=== PATIENT | female | born 1955 | race Caucasian/White ===

== ENCOUNTER 2022-05-26 16:57 | Observation (INO) ==
[2022-05-26] MEDS ORDERED: NovoLIN R (or HumuLIN R) SUBCUT PRN (22:21)
[2022-05-26] MEDS ORDERED: PEPCID TAB 20 MG PO PRN (22:43)
[2022-05-26] MEDS ORDERED: NITRO-BID OINT 2% Multi-Dose tube TD PRN (22:54)
[2022-05-26] MEDS ORDERED: LYRICA CAP 150 mg PO PRN (22:57)
[2022-05-26] MEDS ORDERED: REMDESIVIR 200 MG in NS 250 ML IV 250 ML IV ONE (23:00)
[2022-05-26] MEDS ORDERED: NS 250 ML IV 250 ML IV ONE (23:28)
[2022-05-26] MEDS: TRICOR TAB 145 MG PO SCH (23:42)
[2022-05-26] MEDS: PEPCID TAB 20 MG PO SCH (23:43)
[2022-05-26] MEDS: TAMIFLU PO SCH (23:43)
[2022-05-26] MEDS: CRESTOR TAB 10 MG PO SCH (23:43)
[2022-05-27 00:12] VITALS: BMI 37.5
[2022-05-27] MEDS ORDERED: NITRO-BID OINT 2% Multi-Dose tube TD SCH (03:00)
--- NOTE | 2022-05-27 05:31 | RAD ---
HISTORYCOVID PNEUMONIA Relevant Clinical InformationSTUDYCHEST, 1 VIEWCOMPARISONNoneFINDINGSThe trachea is midline. The cardiac silhouette is unremarkable. The lungs are clear without focal infiltrate or effusion. The bony thorax is unremarkable.IMPRESSIONNo acute cardiopulmonary findings .Electronically signed by: Kristian Campa (May 27, 2022 05:29:43)
[2022-05-27 06:05] LABS: BASOPHILS # (AUTO) 0.1 X10^3/uL (0.0-0.1); EOSINOPHILS # (AUTO) 0.4 x10^3/uL (0.0-0.2); EOSINOPHILS % (AUTO) 6.9 % (0.9-2.9); HEMATOCRIT 38.6 % (36.0-47.0); HEMOGLOBIN 13.6 g/dL (12.0-16.0); LYMPHOCYTES # (AUTO) 2.6 X10^3/uL (1.3-2.9); LYMPHOCYTES % (AUTO) 41.6 % (21.0-51.0); MEAN CORPUSCULAR HEMOGLOBIN 29.3 pg (27.0-34.0); MEAN CORPUSCULAR HGB CONC 35.1 g/dL (33.0-35.0); MEAN CORPUSCULAR VOLUME 83.6 fL (80.0-100.0); MEAN PLATELET VOLUME 8.8 fL (7.4-11.0); MONOCYTES # (AUTO) 0.6 x10^3/uL (0.3-0.8); MONOCYTES % (AUTO) 8.8 % (0.0-13.0); NEUTROPHILS # (AUTO) 2.6 x10^3/uL (2.2-4.8); NEUTROPHILS % (AUTO) 41.7 % (42.0-75.0); RED BLOOD COUNT 4.62 X10^6/uL (3.5-5.4); RED CELL DISTRIBUTION WIDTH 14.1 % (11.6-16.5); WHITE BLOOD COUNT 6.3 X10^3/uL (3.6-10.0)
[2022-05-27 07:07] LABS: ALANINE AMINOTRANSFERASE 25 Units/L (12-78); ALKALINE PHOSPHATASE 70 Units/L (46-116); ASPARTATE AMINO TRANSFERASE 26 Units/L (15-37); BLOOD UREA NITROGEN 15 mg/dL (7-18); CALCIUM 9.1 mg/dL (8.5-10.1); CARBON DIOXIDE 23.1 mmol/L (21-32); CHLORIDE 102 mmol/L (98-107); COR CA(FOR HYPOALB) 9.9 mg/dL (8.5-10.1); COR NA(FOR HYPERGLY) 138 mmol/L (136-145); CREATININE 0.84 mg/dL (0.55-1.02); SODIUM 137 mmol/L (136-145); eGFR NON BLACK RACES > 60 (>60)
[2022-05-27] MEDS ORDERED: TOPROL XL PO ONE (08:01)
--- NOTE | 2022-05-27 08:37 | DR.H&P ---
H&P History & Physical for Day of: H&P Date: 05/27/22 Chief Complaint Chief Complaint: Fever, chills, Generalized weakness, chest pain, shortness of breath Allergies Allergies Allergy/AdvReac Type Severity Reaction Status Date / Time IVP DYE Allergy Uncoded 07/01/21 10:32 History of Present Illness History of Present Illness: Pt is a 67 year old female past medical history of Hypertension, Diabetes mellitus, CAD, admitted as transfer from [facility]. In the ED, she presented with chest pain, shortness of breath, fever, chills, and generalized weakness. She was noted to be COVID-19 positive and was told she also has the flu. Labs/imaging: Wbc 6.3, Hgb 13.6, Plt 201, Na 137, K 3.6, Creatinine 0.84, Glucose 144, Troponin negative, D-dimer negative, CXR was obtained that revealed: no acute cardiopulmonary findings. COVID-19 positive. Pt is currently on room air. Will start on bronchodilators for shortness of breath. Order COVID-19 pneumonia protocol: IV Remdesivir, scheduled Bronchodilators, immune supporting supplements, supplemental O2, SSI, I/S, Lovenox 30mg BID. Restart home medications. Will consult cardiology due to chest pain. Order inf luenza test. Replete potassium per protocol. Continue to closely monitor and follow up labs. Past Surgical History Surgical History: Angioplasty/Stents and Hysterectomy Family History Family Medical History: Diabetes Mellitus, Cancer, [place], Coronary Artery Disease and Hypertension Social History Alcohol Use: None Drug Use: None Medications Home Medications: MS Levofloxacin [From Levaquin] Allergy (Mild, Verified 07/01/21 10:32) RASH IVP DYE Allergy (Uncoded 07/01/21 10:32) CONTINUE taking the following medications albuterol sulfate 90 mcg/actuation aerosol inhaler 2 puff inhalation QID PRN 05/26/22 [History] amlodipine 10 mg tablet 5 mg PO QDAY blood pressure 05/26/22 [History] aspirin 81 mg tablet,delayed release 81 mg PO QPM 05/26/22 [History] empagliflozin 25 mg tablet (Jardiance) 1 tab PO QDAY 05/26/22 [History] ergocalciferol (vitamin D2) 1,250 mcg (50,000 unit) capsule 1 cap PO QWEEK 05/26/22 [History] famotidine 20 mg tablet 1 tab PO BID 05/26/22 [History] fenofibrate nanocrystallized 145 mg tablet 1 tab PO QPM 05/26/22 [History] glipizide 5 mg tablet, extended release 24 hr 1 tab PO QDAY 05/26/22 [History] losartan 100 mg tablet 1 tab PO QDAY blood pressure 05/26/22 [History] metoprolol succinate 100 mg tablet,extended release 24 hr 1 tab PO DAILY 05/26/22 [History] pregabalin 150 mg capsule 1 cap PO PRN PRN Restless Leg(S) 05/26/22 [History] rosuvastatin 5 mg tablet 1 tab PO QPM cholesterol 05/26/22 [History] Labs Result Diagrams: 05/28/22 05:22 05/28/22 05:22 Labs: Laboratory WBC 6.3 X10^3/uL (3.6-10.0) 05/27/22 05:11 RBC 4.62 X10^6/uL (3.5-5.4) 05/27/22 05:11 Hgb 13.6 g/dL (12.0-16.0) 05/27/22 05:11 Hct 38.6 % (36.0-47.0) 05/27/22 05:11 MCV 83.6 fL (80.0-100.0) 05/27/22 05:11 MCH 29.3 pg (27.0-34.0) 05/27/22 05:11 MCHC 35.1 g/dL (33.0-35.0) H 05/27/22 05:11 RDW 14.1 % (11.6-16.5) 05/27/22 05:11 Plt Count 201 X10^3/uL (150.0-450.0) 05/27/22 05:11 MPV 8.8 fL (7.4-11.0) 05/27/22 05:11 Neut % (Auto) 41.7 % (42.0-75.0) L 05/27/22 05:11 Lymph % (Auto) 41.6 % (21.0-51.0) 05/27/22 05:11 [place] % (Auto) 8.8 % (0.0-13.0) 05/27/22 05:11 Eos % (Auto) 6.9 % (0.9-2.9) H 05/27/22 05:11 Baso % (Auto) 1.0 % (0.2-1.0) 05/27/22 05:11 Neut # (Auto) 2.6 x10^3/uL (2.2-4.8) 05/27/22 05:11 Lymph # (Auto) 2.6 X10^3/uL (1.3-2.9) 05/27/22 05:11 [place] # (Auto) 0.6 x10^3/uL (0.3-0.8) 05/27/22 05:11 Eos # (Auto) 0.4 x10^3/uL (0.0-0.2) H 05/27/22 05:11 Baso # (Auto) 0.1 X10^3/uL (0.0-0.1) 05/27/22 05:11 Absolute Nucleated RBC 0.1 /100WBC 05/27/22 05:11 Sodium 137 mmol/L (136-145) 05/27/22 05:11 Corrected Sodium 138 mmol/L (136-145) 05/27/22 05:11 Potassium 3.6 mmol/L (3.5-5.1) 05/27/22 05:11 Chloride 102 mmol/L (98-107) 05/27/22 05:11 Carbon Dioxide 23.1 mmol/L (21-32) 05/27/22 05:11 BUN 15 mg/dL (7-18) 05/27/22 05:11 Creatinine 0.84 mg/dL (0.55-1.02) 05/27/22 05:11 Est GFR (MDRD) Af Amer > 60 (>60) 05/27/22 05:11 Est GFR (MDRD) Non-Af > 60 (>60) 05/27/22 05:11 Glucose 144 mg/dL (65-99) H 05/27/22 05:11 POC Glucose (mg/dL) 151 mg/dL (65-99) H 05/27/22 05:50 Calcium 9.1 mg/dL (8.5-10.1) 05/27/22 05:11 Corrected Calcium 9.9 mg/dL (8.5-10.1) 05/27/22 05:11 Total Bilirubin 0.20 mg/dL (0.2-1.0) 05/27/22 05:11 AST 26 Units/L (15-37) 05/27/22 05:11 ALT 25 Units/L (12-78) 05/27/22 05:11 Alkaline Phosphatase 70 Units/L (46-116) 05/27/22 05:11 Total Protein 7.0 g/dL (6.4-8.2) 05/27/22 05:11 Albumin 3.0 g/dL (3.4-5.0) L 05/27/22 05:11 Globulin 4.0 g/dL (2.5-4.5) 05/27/22 05:11 Albumin/Globulin Ratio 0.8 Ratio (1.1-2.1) L 05/27/22 05:11 Review of Systems Constitutional: Weakness Eyes: No Symptoms Reported ENT: No Symptoms Reported Respiratory: Shortness of Breath Cardiovascular: Chest Pain Gastrointestinal: No Symptoms Reported Genitourinary: No Symptoms Reported Musculoskeletal: No Symptoms Reported Skin: No Symptoms Reported Neurological: No Symptoms Reported Physical Exam Vital Signs: Temperature 98.1 F Pulse Rate [Radial] 78 Respiratory Rate 18 Blood Pressure [Left Arm] 141/72 Blood Pressure [Right Arm] 136/65 O2 Sat by Pulse Oximetry 96 Oriented: Normal Eyes: Normal Ear: Normal Nose: Normal Throat: Normal Respiratory: Clear Throughout Cardiovascular: Normal : Normal Auscultation: Bowel Sounds: Normal Palpation: Normal Tenderness: Normal Skin: Normal Musculoskeletal: Normal Psychiatric: Normal Mood Description: Calm and Appropriate Affect: Normal Speech Pattern: Clear and Appropriate Assessment/Plan (1) COVID-19: Status: Acute Plan: pneumonia protocol (2) CAD (coronary artery disease): Status: Chronic (3) Hypokalemia: Status: Acute Review H&P Reviewed: Yes Patient was examined?: Yes
[2022-05-27] MEDS: TOPROL XL PO SCH (08:53)
[2022-05-27] MEDS: GLUCOTROL XL 24-HR PO SCH (08:53)
[2022-05-27] MEDS: TAMIFLU PO SCH ×2 (08:54→20:42)
[2022-05-27] MEDS: PEPCID TAB 20 MG PO SCH ×2 (08:54→20:43)
[2022-05-27] MEDS: LOVENOX INJ 40 MG SYR SC SCH (08:54)
[2022-05-27] MEDS: COZAAR PO SCH (08:54)
[2022-05-27] MEDS: NORVASC TAB 5 MG PO SCH (08:54)
[2022-05-27] MEDS ORDERED: ASPIRIN EC 81 MG PO ONE (19:47)
[2022-05-27] MEDS ORDERED: SNACK - Diabetic Appropriate PO SCH (20:00)
[2022-05-27] MEDS: CRESTOR TAB 10 MG PO SCH (20:42)
[2022-05-27] MEDS: TRICOR TAB 145 MG PO SCH (20:43)
[2022-05-27] MEDS ORDERED: ASPIRIN EC 81 MG PO SCH ×2 (21:00)
[2022-05-27] MEDS ORDERED: REMDESIVIR 100 MG in NS 250 ML IV 250 ML IV SCH (22:00)
[2022-05-28] MEDS: GLUCOTROL XL 24-HR PO SCH (06:01)
[2022-05-28 06:15] LABS: BASOPHILS # (AUTO) 0.1 X10^3/uL (0.0-0.1); EOSINOPHILS # (AUTO) 0.3 x10^3/uL (0.0-0.2); EOSINOPHILS % (AUTO) 5.6 % (0.9-2.9); HEMATOCRIT 37.7 % (36.0-47.0); LYMPHOCYTES # (AUTO) 2.9 X10^3/uL (1.3-2.9); LYMPHOCYTES % (AUTO) 48.9 % (21.0-51.0); MEAN CORPUSCULAR HEMOGLOBIN 28.6 pg (27.0-34.0); MEAN CORPUSCULAR HGB CONC 34.5 g/dL (33.0-35.0); MEAN PLATELET VOLUME 8.5 fL (7.4-11.0); MONOCYTES # (AUTO) 0.5 x10^3/uL (0.3-0.8); NEUTROPHILS # (AUTO) 2.1 x10^3/uL (2.2-4.8); NEUTROPHILS % (AUTO) 35.5 % (42.0-75.0); RED BLOOD COUNT 4.54 X10^6/uL (3.5-5.4); RED CELL DISTRIBUTION WIDTH 13.8 % (11.6-16.5); WHITE BLOOD COUNT 5.8 X10^3/uL (3.6-10.0)
[2022-05-28 06:23] LABS: ALANINE AMINOTRANSFERASE 20 Units/L (12-78); ALBUMIN 2.9 g/dL (3.4-5.0); ALKALINE PHOSPHATASE 74 Units/L (46-116); ASPARTATE AMINO TRANSFERASE 18 Units/L (15-37); BLOOD UREA NITROGEN 18 mg/dL (7-18); CALCIUM 8.8 mg/dL (8.5-10.1); CARBON DIOXIDE 24.1 mmol/L (21-32); CHLORIDE 103 mmol/L (98-107); COR CA(FOR HYPOALB) 9.7 mg/dL (8.5-10.1); COR NA(FOR HYPERGLY) 140 mmol/L (136-145); CREATININE 0.83 mg/dL (0.55-1.02); SODIUM 138 mmol/L (136-145); TOTAL PROTEIN 6.6 g/dL (6.4-8.2); eGFR NON BLACK RACES > 60 (>60)
[2022-05-28] MEDS ORDERED: POTASSIUM CHL 60 MEQ/NS 0.45% 500 ML IV PRN (07:03)
[2022-05-28] MEDS ORDERED: MICRO K EXTEN CAP 10 MEQ PO PRN (07:03)
[2022-05-28] MEDS ORDERED: POTASSIUM CHLORIDE LIQ 20 MEQ UDC PO PRN (07:03)
[2022-05-28] MEDS ORDERED: K-DUR TAB 20 MEQ PO PRN (07:03)
[2022-05-28] MEDS ORDERED: K-RIDER 10 MEQ/NS 100 ML 10 MEQ/100 ML BAG IV PRN (07:03)
[2022-05-28] MEDS ORDERED: POTASSIUM CHL 40 MEQ/NS 0.45% 500 ML IV PRN (07:03)
[2022-05-28] MEDS ORDERED: KLOR-CON PO PRN (07:03)
[2022-05-28] MEDS ORDERED: TOPROL XL PO ONE (07:51)
[2022-05-28] MEDS: COZAAR PO SCH (08:11)
[2022-05-28] MEDS: NORVASC TAB 5 MG PO SCH (08:11)
[2022-05-28] MEDS: TOPROL XL PO SCH (08:11)
[2022-05-28] MEDS: LOVENOX INJ 40 MG SYR SC SCH (08:11)
[2022-05-28] MEDS: TAMIFLU PO SCH (08:12)
[2022-05-28] MEDS: PEPCID TAB 20 MG PO SCH (08:12)
[2022-05-28 08:49] VITALS: BP 153/69
--- NOTE | 2022-05-28 16:27 | W.DIS.FURT ---
Summary of Discharge Discharge Summary of Date Date of Exam: 05/28/22 Admission Date Date of Admission: 05/26/22 Admission Diagnosis Hospital Course: Pt is a 67 year old female past medical history of Hypertension, Diabetes mellitus, CAD, admitted as transfer from [facility] for COVID-19 viremia, hypokalemia, and chest pain rule out. She was noted to be COVID-19 positive. She did not require supplemental oxygen. Her hospital/treatment course included: Will start on bronchodilators for shortness of breath. Order COVID-19 pneumonia protocol: IV Remdesivir, scheduled Bronchodilators, immune supporting supplements, supplemental O2, SSI, I/S, Lovenox 30mg BID. Restart home medications. Labs/imaging: Wbc 6.3, Hgb 13.6, Plt 201, Na 137, K 3.6, Creatinine 0.84, Glucose 144, Troponin negative, D-dimer negative, CXR was obtained that revealed: no acute cardiopulmonary findings. Will consult cardiology due to chest pain. Order influenza test. Replete potassium per protocol. Continue to closely monitor and follow up labs. Vital Signs: Vital Signs (72 hours) 05/26/22 20:30 05/27/22 00:00 05/27/22 04:00 Temperature 97.6 F 98.1 F Pulse Rate [Radial] 56 L 78 Respiratory Rate 18 18 Blood Pressure [Right Arm] 155/69 136/65 O2 Sat by Pulse Oximetry 96 96 Oxygen Delivery Method Room Air Room Air Room Air 05/27/22 07:00 05/27/22 08:00 05/27/22 12:00 Temperature 98.5 F 98.0 F Pulse Rate [Radial] 70 64 Respiratory Rate 18 20 Blood Pressure [Right Arm] 150/75 146/77 O2 Sat by Pulse Oximetry 94 L 96 Oxygen Delivery Method Room Air Room Air Room Air 05/27/22 16:00 05/27/22 19:00 05/27/22 20:00 Temperature 97.8 F 97.7 F Pulse Rate [Radial] 78 69 Respiratory Rate 20 18 Blood Pressure [Right Arm] 135/68 170/77 O2 Sat by Pulse Oximetry 97 96 Oxygen Delivery Method Room Air Room Air Room Air 05/28/22 00:00 05/28/22 03:50 05/28/22 07:00 Temperature 97.8 F 98.5 F Pulse Rate [Radial] 66 69 Respiratory Rate 20 18 Blood Pressure [Right Arm] 136/65 113/56 O2 Sat by Pulse Oximetry 97 97 Oxygen Delivery Method Room Air Room Air Room Air 05/28/22 08:00 Temperature 98.1 F Pulse Rate [Radial] 71 Respiratory Rate 20 Blood Pressure [Right Arm] 153/69 O2 Sat by Pulse Oximetry 96 Oxygen Delivery Method Room Air Labs: Laboratory Last Values WBC 5.8 X10^3/uL (3.6-10.0) 05/28/22 05:22 RBC 4.54 X10^6/uL (3.5-5.4) 05/28/22 05:22 Hgb 13.0 g/dL (12.0-16.0) 05/28/22 05:22 Hct 37.7 % (36.0-47.0) 05/28/22 05:22 MCV 83.0 fL (80.0-100.0) 05/28/22 05:22 MCH 28.6 pg (27.0-34.0) 05/28/22 05:22 MCHC 34.5 g/dL (33.0-35.0) 05/28/22 05:22 RDW 13.8 % (11.6-16.5) 05/28/22 05:22 Plt Count 205 X10^3/uL (150.0-450.0) 05/28/22 05:22 MPV 8.5 fL (7.4-11.0) 05/28/22 05:22 Neut % (Auto) 35.5 % (42.0-75.0) L 05/28/22 05:22 Lymph % (Auto) 48.9 % (21.0-51.0) 05/28/22 05:22 [place] % (Auto) 9.0 % (0.0-13.0) 05/28/22 05:22 Eos % (Auto) 5.6 % (0.9-2.9) H 05/28/22 05:22 Baso % (Auto) 1.0 % (0.2-1.0) 05/28/22 05:22 Neut # (Auto) 2.1 x10^3/uL (2.2-4.8) L 05/28/22 05:22 Lymph # (Auto) 2.9 X10^3/uL (1.3-2.9) 05/28/22 05:22 [place] # (Auto) 0.5 x10^3/uL (0.3-0.8) 05/28/22 05:22 Eos # (Auto) 0.3 x10^3/uL (0.0-0.2) H 05/28/22 05:22 Baso # (Auto) 0.1 X10^3/uL (0.0-0.1) 05/28/22 05:22 Absolute Nucleated RBC 0.0 /100WBC 05/28/22 05:22 Sodium 138 mmol/L (136-145) 05/28/22 05:22 Corrected Sodium 140 mmol/L (136-145) 05/28/22 05:22 Potassium 3.3 mmol/L (3.5-5.1) L 05/28/22 05:22 Chloride 103 mmol/L (98-107) 05/28/22 05:22 Carbon Dioxide 24.1 mmol/L (21-32) 05/28/22 05:22 BUN 18 mg/dL (7-18) 05/28/22 05:22 Creatinine 0.83 mg/dL (0.55-1.02) 05/28/22 05:22 Est GFR (MDRD) Af Amer > 60 (>60) 05/28/22 05:22 Est GFR (MDRD) Non-Af > 60 (>60) 05/28/22 05:22 Glucose 167 mg/dL (65-99) H 05/28/22 05:22 POC Glucose (mg/dL) 165 mg/dL (65-99) H 05/28/22 05:31 Calcium 8.8 mg/dL (8.5-10.1) 05/28/22 05:22 Corrected Calcium 9.7 mg/dL (8.5-10.1) 05/28/22 05:22 Total Bilirubin 0.30 mg/dL (0.2-1.0) 05/28/22 05:22 AST 18 Units/L (15-37) 05/28/22 05:22 ALT 20 Units/L (12-78) 05/28/22 05:22 Alkaline Phosphatase 74 Units/L (46-116) 05/28/22 05:22 Total Protein 6.6 g/dL (6.4-8.2) 05/28/22 05:22 Albumin 2.9 g/dL (3.4-5.0) L 05/28/22 05:22 Globulin 3.7 g/dL (2.5-4.5) 05/28/22 05:22 Albumin/Globulin Ratio 0.8 Ratio (1.1-2.1) L 05/28/22 05:22 Influenza Type A Ag Negative-presumptive (NEGATIVE) 05/27/22 13:45 Influenza Type B Ag Negative-presumptive (NEGATIVE) 05/27/22 13:45 Reason For Visit: CHEST PAIN, SHORTNESS OF BREATH Discharge Diagnosis All Active Problems (Updated 05/28/22 @ 09:19 by Umesh Layne) Hypokalemia (Acute) COVID-19 (Acute) RLS (restless legs syndrome) (Chronic) Community acquired pneumonia (Acute) GERD (gastroesophageal reflux disease) (Chronic) CAD (coronary artery disease) (Chronic) Hyperlipidemia (Chronic) Hypertension (Chronic) History of ND (myocardial infarction) (Chronic) History of diverticulosis (Chronic) Diabetes mellitus, type 2 (Chronic) Plan of Treatment: Continue with present treatment and follow up plan. Pt is to keep follow up appointment as instructed and take medications as ordered. Discharge Medications Discharge Medications: IVP DYE Allergy (Uncoded 07/01/21 10:32) CONTINUE taking the following medications albuterol sulfate 90 mcg/actuation aerosol inhaler 2 puff inhalation QID PRN 05/26/22 [History] amlodipine 10 mg tablet 5 mg PO QDAY blood pressure 05/26/22 [History] aspirin 81 mg tablet,delayed release 81 mg PO QPM 05/26/22 [History] empagliflozin 25 mg tablet (Jardiance) 1 tab PO QDAY 05/26/22 [History] ergocalciferol (vitamin D2) 1,250 mcg (50,000 unit) capsule 1 cap PO QWEEK 0 05/26/22 [History] famotidine 20 mg tablet 1 tab PO BID 05/26/22 [History] fenofibrate nanocrystallized 145 mg tablet 1 tab PO QPM 05/26/22 [History] glipizide 5 mg tablet, extended release 24 hr 1 tab PO QDAY 05/26/22 [History] losartan 100 mg tablet 1 tab PO QDAY blood pressure 05/26/22 [History] metoprolol succinate 100 mg tablet,extended release 24 hr 1 tab PO DAILY 05/26/22 [History] pregabalin 150 mg capsule 1 cap PO PRN PRN Restless Leg(S) 05/26/22 [History] rosuvastatin 5 mg tablet 1 tab PO QPM cholesterol 05/26/22 [History] Discharge Plan Discharge Plan Hospital Course: Pt is a 67 year old female past medical history of Hypertension, Diabetes mellitus, CAD, admitted as transfer from [facility] for COVID-19 viremia, hypokalemia, and chest pain rule out. She was noted to be COVID-19 positive. She did not require supplemental oxygen. Her hospital/treatment course included: Will start on bronchodilators for shortness of breath. Order COVID-19 pneumonia protocol: IV Remdesivir, scheduled Bronchodilators, immune supporting supplements, supplemental O2, SSI, I/S, Lovenox 30mg BID. Restart home m edications. Labs/imaging: Wbc 6.3, Hgb 13.6, Plt 201, Na 137, K 3.6, Creatinine 0.84, Glucose 144, Troponin negative, D-dimer negative, CXR was obtained that revealed: no acute cardiopulmonary findings. Will consult cardiology due to chest pain. Order influenza test. Replete potassium per protocol. Continue to closely monitor and follow up labs. Patient Disposition: 01 HOME, SELF-CARE Condition: Stable Health Concerns: Post Hospitalization: new medications and changes needed to prevent readmission or further decline. Pt educated and given instructions on all concerns. Care Plan Goals: Problem: Cardiac Complications Goal: Early Recognition of cardiac complications for prompt intervention Instructions: Follow provided instructions. Follow up with primary physician as directed. Contact primary care physician or report to the closest Emergency Room if condition worsens. Plan of Treatment: Continue with present treatment and follow up plan. Pt is to keep follow up appointment as instructed and take medications as ordered. Prescriptions: Continued metoprolol succinate 100 mg tablet extended release 24 hr 1 tab PO DAILY glipizide 5 mg tablet extended release 24hr 1 tab PO QDAY aspirin 81 mg Tablet,Delayed Release (Dr/Ec) 81 mg PO QPM famotidine 20 mg tablet 1 tab PO BID amlodipine 10 mg tablet 5 mg PO QDAY ergocalciferol (vitamin D2) 1,250 mcg (50,000 unit) capsule 1 cap PO QWEEK losartan 100 mg tablet 1 tab PO QDAY rosuvastatin 5 mg tablet 1 tab PO QPM pregabalin 150 mg capsule 1 cap PO PRN PRN (Reason: Restless Leg(S)) fenofibrate nanocrystallized 145 mg tablet 1 tab PO QPM Jardiance 25 mg tablet 1 tab PO QDAY albuterol sulfate 90 mcg/actuation Hfa Aerosol Inhaler 2 puff INHALATION QID PRN Orders to Discharge Patient Discharge Orders: Discharge (Routine); Ordered 05/28/22 Ordered By: Umesh Layne Follow ups/Referrals Follow ups/Referrals: Susan Roman [Primary Care Provider] - 06/01/22 10:45 am Stevan Goddard [STAFF PHYSICIAN] - (Dr. Goddard's office will call you with appointment. Referral sent on 05/28/22.) Instructions Instructions: Fall Prevention in the Home, Adult, Llit-hx-Vqzi, Shortness of Breath, Adult, Vfsk-kx-Lcba, COVID-19, Chronic Obstructive Pulmonary Disease, Iwee-ft-Agxb, 10 Things You Can Do to Manage Your COVID-19 Symptoms at Home - [facility] [place]NOTE 2] (04/17/2020), Nonspecific Chest Pain, Adult, Iwud-nv-Azgc, Aspirin and Your Heart, Type 2 Diabetes Mellitus, Self-Care, Adult, Txto-qb-Dycf, Hypertension, Adult, Yezv-cq-Qhmv Stand Alone Forms: Precautions for COVID19, [facility], Patient Portal, Social Distancing Patient Education Addl Reference Links: Nonspecific Chest Pain [email or web address] [email or web address]&[email or web address] [email or web address] [email or web address] a.[email or web address].dn=[id number]
== END 2022-05-28 12:55 | disposition home or self-care (01) ==
LOC: MED/SURG
PROVIDERS: ADMIT Family Medicine; ATTEND Family Medicine
DX: I25.2 Old myocardial infarction; G47.33 Obstructive sleep apnea (adult) (pediatric); I25.10 Atherosclerotic heart disease of native coronary artery without angina pectoris; Z95.820 Peripheral vascular angioplasty status with implants and grafts; E78.5 Hyperlipidemia, unspecified; U07.1 COVID-19; E11.65 Type 2 diabetes mellitus with hyperglycemia; E87.6 Hypokalemia; I11.9 Hypertensive heart disease without heart failure; Z87.891 Personal history of nicotine dependence; R94.31 Abnormal electrocardiogram [ECG] [EKG]; R07.9 Chest pain, unspecified

== ENCOUNTER 2024-01-24 12:47 | Inpatient (IN) ==
[2024-01-24] MEDS ORDERED: PROVENTIL NEB TX 0.083% 2.5MG/ 3ML NEB PRN (15:57)
[2024-01-24] MEDS: ZITHROMAX INJ 500 MG VIAL 500 MG in D5W 250 ML IV 250 ML IV SCH (16:19)
[2024-01-24 16:22] LABS: ABG ALLEN TEST POS; ABG BASE EXCESS 0.9 mmol/L (-2.0-2.0); ABG HCO3 23.8 mmol/L (22-26)
[2024-01-24] MEDS: NS 1,000 ML IV 1,000 ML IV SCH (16:26)
[2024-01-24] MEDS: SOLU-Medrol 40 MG VIAL IVP SCH (16:26)
[2024-01-24 16:48] VITALS: BMI 37.0
--- NOTE | 2024-01-24 17:37 | DR.H&P ---
H&P History & Physical for Day of: H&P Date: 01/24/24 Chief Complaint Chief Complaint: CCC, SOB Allergies Allergies Allergy/AdvReac Type Severity Reaction Status Date / Time IVP DYE Allergy Uncoded 07/01/21 10:32 History of Present Illness History of Present Illness: PT IS 68 WF, DIRECT ADMIT WITH CO CCC, SOB AND WEAKNESS FOR OVER A WEEK. PT HAS TAKEN ZITHROMAX AND MEDROL DOSE PACK PO AND HAD AN IM ROCEPHIN SHOT LAST WEEK WITHOUT IMPROVEMENT. PT HAS PMH OF HTN, DM, OA AND HAD TAKEN DUO NEBS WITH CONTINUED WHEEZING AND COUGH. PT ADMITTED FOR TREATMENT AND EVALUATION OF ACUTE ILLNESS. Past Surgical History Surgical History: Angioplasty/Stents, Bowel Resection and Hysterectomy Family History Family Medical History: Diabetes Mellitus and Hypertension Social History Does patient currently use any type of tobacco product: No Have you used tobacco products in the last 12 months: No Type of Tobacco Use: None Does any household member use tobacco: No Alcohol Use: None Drug Use: None Medications Home Medications: Home Medications Medication Instructions Recorded Confirmed Type albuterol sulfate 90 mcg/actuation 2 puff inhalation QID PRN 05/26/22 01/24/24 History aerosol inhaler amlodipine 10 mg tablet 10 mg PO QDAY blood pressure 05/26/22 01/24/24 History aspirin 81 mg tablet,delayed 81 mg PO DAILY 05/26/22 01/24/24 History release empagliflozin 25 mg tablet 25 mg PO QDAY 05/26/22 01/24/24 History (Jardiance) ergocalciferol (vitamin D2) 1,250 1 cap PO QWEEK 05/26/22 01/24/24 History mcg (50,000 unit) capsule famotidine 20 mg tablet 20 mg PO HS 05/26/22 01/24/24 History fenofibrate nanocrystallized 145 145 mg PO HS 05/26/22 01/24/24 History mg tablet glipizide 5 mg tablet, extended 5 mg PO QDAY 05/26/22 01/24/24 History release 24 hr losartan 100 mg tablet 100 mg PO QDAY blood pressure 05/26/22 01/24/24 History metoprolol succinate 100 mg 100 mg PO BID 05/26/22 01/24/24 History tablet,extended release 24 hr pregabalin 150 mg capsule 150 mg PO BID 05/26/22 01/24/24 History rosuvastatin 5 mg tablet 5 mg PO DAILY cholesterol 05/26/22 01/24/24 History azithromycin 500 mg tablet 500 mg PO QDAY 01/24/24 01/24/24 History dexamethasone 4 mg tablet 4 mg PO QDAY 01/24/24 01/24/24 History metformin 500 mg tablet,extended 500 mg PO BID 01/24/24 01/24/24 History release 24 hr spironolactone 25 mg tablet 25 mg PO BID 01/24/24 01/24/24 History Labs Labs: Laboratory Sample Site [place] 01/24/24 16:17 ABG pH 7.480 (7.35-7.45) H 01/24/24 16:17 ABG pCO2 32.0 mmHg (35.0-45.0) L 01/24/24 16:17 ABG pO2 98.0 mmHg (80.0-100.0) 01/24/24 16:17 ABG HCO3 23.8 mmol/L (22-26) 01/24/24 16:17 ABG O2 Saturation 98.0 % (90-100) 01/24/24 16:17 ABG Base Excess 0.9 mmol/L (-2.0-2.0) 01/24/24 16:17 Henrry Test Pos 01/24/24 16:17 A-a Gradient 12.0 mmHg 01/24/24 16:17 FiO2 21.0 01/24/24 16:17 Blood Gas Comments Pt zack well. kg 01/24/24 16:17 POC Glucose (mg/dL) 313 mg/dL (65-99) H 01/24/24 17:12 Review of Systems Constitutional: Chills, Weakness and Malaise Eyes: No Symptoms Reported ENT: Nose Congestion Respiratory: Shortness of Breath Cardiovascular: Palpitations Gastrointestinal: Nausea Genitourinary: No Symptoms Reported Musculoskeletal: No Symptoms Reported Skin: Rash Neurological: No Symptoms Reported Physical Exam Vital Signs: Vital Signs Temperature 97.8 F Temperature 97.8 F Pulse Rate [Left Brachial] 67 Pulse Rate 65 Respiratory Rate 19 Respiratory Rate 19 Blood Pressure [Right Arm] 131/60 Blood Pressure 162/77 O2 Sat by Pulse Oximetry 91 O2 Sat by Pulse Oximetry 95 Oriented: Normal Eyes: Normal Ear: Normal Nose: Discharge Throat: Exudate Respiratory: Wheezes Throughout Cardiovascular: Irregular Auscultation: Bowel Sounds: Normal Tenderness: Normal Skin: Decreased Turgur Musculoskeletal: Back:Lumbar Mood Description: Anxious Affect: Anxious Speech Pattern: Clear and Appropriate Assessment/Plan (1) Acute bronchitis: Narrative Support Text: ADMIT, COVID RESP SWAB ON ADMISSION RESP CONSULT, SPUTUM AND BLOOD CULTURES ON ADMISSION IV HYDRATION, BP AND BS CONTROL ADMISSION LABS, IV ZITHROMAX IV SOLU MEDROL VERIFY HOME MEDICATIONS PRN SUPPLEMENTAL O2, ABG ON ADMISSION Status: Acute (2) RLS (restless legs syndrome): Status: Chronic (3) CAD (coronary artery disease): Status: Chronic (4) Hypertension: Qualifiers: Hypertension type: essential hypertension Qualified Code(s): I10 - Essential (primary) hypertension Status: Chronic (5) Diabetes mellitus, type 2: Status: Chronic
[2024-01-24] MEDS: NovoLIN R (or HumuLIN R) SC PRN (17:53)
[2024-01-24] MEDS: NYSTATIN POWDER TOP SCH (17:57)
[2024-01-24 18:03] LABS: BASOPHILS # (AUTO) 0.1 X10^3/uL (0.0-0.1); BASOPHILS % (AUTO) 0.6 % (0.2-1.0); EOSINOPHILS # (AUTO) 0.1 x10^3/uL (0.0-0.2); EOSINOPHILS % (AUTO) 0.6 % (0.9-2.9); HEMATOCRIT 37.9 % (36.0-47.0); HEMOGLOBIN 13.2 g/dL (12.0-16.0); LYMPHOCYTES # (AUTO) 2.3 X10^3/uL (1.3-2.9); LYMPHOCYTES % (AUTO) 21.6 % (21.0-51.0); MEAN CORPUSCULAR HEMOGLOBIN 29.6 pg (27.0-34.0); MEAN CORPUSCULAR HGB CONC 34.9 g/dL (33.0-35.0); MEAN CORPUSCULAR VOLUME 84.8 fL (80.0-100.0); MEAN PLATELET VOLUME 8.7 fL (7.4-11.0); MONOCYTES # (AUTO) 0.6 x10^3/uL (0.3-0.8); MONOCYTES % (AUTO) 5.9 % (0.0-13.0); NEUTROPHILS # (AUTO) 7.6 x10^3/uL (2.2-4.8); NEUTROPHILS % (AUTO) 71.3 % (42.0-75.0); PLATELET COUNT 287 X10^3/uL (150.0-450.0); RED BLOOD COUNT 4.48 X10^6/uL (3.5-5.4); RED CELL DISTRIBUTION WIDTH 13.4 % (11.6-16.5); WHITE BLOOD COUNT 10.6 X10^3/uL (3.6-10.0)
[2024-01-24 18:18] LABS: ALBUMIN 2.7 g/dL (3.4-5.0); CARBON DIOXIDE 25.7 mmol/L (21-32); CREATININE 1.54 mg/dL (0.55-1.02)
[2024-01-24 19:10] LABS: TOTAL PROTEIN 6.2 g/dL (6.4-8.2)
[2024-01-24 20:07] LABS: BILIRUBIN,URINE NEGATIVE (NEGATIVE); BLOOD/HEMOGLOBIN,URINE 1+ (NEGATIVE); GLUCOSE, URINE 4+ (NEGATIVE); KETONES,URINE NEGATIVE (NEGATIVE); LEUKOCYTE ESTERASE ,URINE NEGATIVE (NEGATIVE); NITRITES,URINE NEGATIVE (NEGATIVE); PROTEIN,URINE 3+ (NEGATIVE); UROBILINOGEN,URINE NORMAL (NORMAL)
[2024-01-24 20:19] LABS: APPEARANCE,URINE CLEAR (CLEAR); BACTERIA,URINE TRACE /HPF (NEGATIVE); COLOR,URINE PALE YELLOW (YELLOW); RBC,URINE 0-2 /HPF (0-3); SQUAMOUS EPITHELIAL CELL,UR RARE /HPF (NEGATIVE)
[2024-01-24] MEDS ORDERED: TOPROL XL PO ONE (20:43)
[2024-01-24] MEDS: TRICOR TAB 145 MG PO SCH (21:11)
[2024-01-24] MEDS: LYRICA CAP 150 mg PO SCH (21:12)
[2024-01-24] MEDS: PEPCID TAB 20 MG PO SCH (21:12)
[2024-01-24] MEDS: TOPROL XL PO SCH (21:12)
[2024-01-24] MEDS: GLUCOPHAGE XR 24-HR PO SCH (21:12)
[2024-01-24] MEDS: COZAAR PO SCH (23:07)
[2024-01-24] MEDS: CRESTOR TAB 10 MG PO SCH (23:07)
--- NOTE | 2024-01-24 23:32 | RAD ---
EXAM: CHEST, 1 VIEW HISTORY: SOB, CCC; COMPARISON: May 26, 2022 TECHNIQUE: Chest radiographic imaging, AP portable projection, 1 image FINDINGS: Mild cardiomegaly. No focal airspace disease. No pleural effusion. No pneumothorax. No acute osseous abnormality. IMPRESSION: No imaging findings of acute cardiopulmonary disease or significant changes. THIS IS AN ELECTRONICALLY VERIFIED FINAL REPORT 01/24/2024 11:28 PM - Electronically signed by Kolby Norman MD
[2024-01-25 06:00] LABS: BASOPHILS # (AUTO) 0.1 X10^3/uL (0.0-0.1); BASOPHILS % (AUTO) 0.8 % (0.2-1.0); HEMATOCRIT 36.6 % (36.0-47.0); HEMOGLOBIN 12.4 g/dL (12.0-16.0); LYMPHOCYTES # (AUTO) 1.5 X10^3/uL (1.3-2.9); LYMPHOCYTES % (AUTO) 14.7 % (21.0-51.0); MEAN CORPUSCULAR HEMOGLOBIN 28.5 pg (27.0-34.0); MEAN CORPUSCULAR HGB CONC 33.9 g/dL (33.0-35.0); MEAN CORPUSCULAR VOLUME 84.3 fL (80.0-100.0); MEAN PLATELET VOLUME 8.5 fL (7.4-11.0); MONOCYTES # (AUTO) 0.2 x10^3/uL (0.3-0.8); MONOCYTES % (AUTO) 1.9 % (0.0-13.0); NEUTROPHILS # (AUTO) 8.3 x10^3/uL (2.2-4.8); NEUTROPHILS % (AUTO) 82.6 % (42.0-75.0); PLATELET COUNT 263 X10^3/uL (150.0-450.0); RED BLOOD COUNT 4.34 X10^6/uL (3.5-5.4); RED CELL DISTRIBUTION WIDTH 13.6 % (11.6-16.5)
[2024-01-25 06:17] LABS: ALANINE AMINOTRANSFERASE 13 Units/L (12-78); ALBUMIN 2.9 g/dL (3.4-5.0); ALKALINE PHOSPHATASE 51 Units/L (46-116); ASPARTATE AMINO TRANSFERASE 13 Units/L (15-37); BLOOD UREA NITROGEN 30 mg/dL (7-18); CALCIUM 8.8 mg/dL (8.5-10.1); CARBON DIOXIDE 23.7 mmol/L (21-32); CHLORIDE 104 mmol/L (98-107); COR CA(FOR HYPOALB) 9.7 mg/dL (8.5-10.1); COR NA(FOR HYPERGLY) 141 mmol/L (136-145); CREATININE 0.94 mg/dL (0.55-1.02); GLUCOSE 218 mg/dL (65-99); POTASSIUM 4.3 mmol/L (3.5-5.1); SODIUM 138 mmol/L (136-145); TOTAL PROTEIN 6.6 g/dL (6.4-8.2); eGFR NON BLACK RACES > 60 (>60)
[2024-01-25] MEDS ORDERED: TOPROL XL PO ONE ×2 (08:20→20:31)
[2024-01-25] MEDS: PROTONIX INJ 40 MG VIAL IVP SCH (08:38)
[2024-01-25] MEDS: NORVASC TAB 10 MG PO SCH (08:38)
[2024-01-25] MEDS: FARXIGA PO SCH (08:39)
[2024-01-25] MEDS: TOPROL XL PO SCH (08:39)
[2024-01-25 08:54] LABS: FREE T4 (FREE THYROXINE) 0.86 ng/dL (0.76-1.46); TSH (3RD GENERATION) 0.818 uIU/mL (0.358-3.74)
[2024-01-25] MEDS ORDERED: TUSSIONEX PENNKINETIC SUSP PO PRN (08:56)
[2024-01-25] MEDS ORDERED: CRESTOR TAB 10 MG PO SCH (09:00)
[2024-01-25] MEDS ORDERED: COZAAR PO SCH (09:00)
[2024-01-25] MEDS: DUONEB 0.5 MG/3 MG (3 mL) NEB SCH (12:01)
--- NOTE | 2024-01-25 17:03 | PCM.PROG ---
Progress Note Progress Note for Day of Date of Exam: 01/25/24 Subjective Subjective: PT IS 68 WF, DIRECT ADMIT YESTERDAY FOR TREATMENT OF ACUTE BRONCHITIS AFTER FAILING OUTPATIENT TREATMENT. UPON ADMISSION, PT WAS STARTED ON IV HYDRATION, IV ABX, AND IV SOLUMEDROL. WE OBTAINED A RESPIRATORY SWAB THAT WAS NEGATIVE FOR FLU/COVID/RSV AND A CHEST XRAY THAT SHOWED MILD CARDIOMEGALY, BUT OTHERWISE WITHOUT ACUTE CARDIOPULMONARY DISEASE. ADMISSION LABS: WBC 10.6, HGB 13.2, D-DIMER 0.62, BUN 32/CREATININE 1.54, GLUCOSE 3.42. PATIENT IS A KNOWN DIABETIC AND HOME MEDICATIONS WERE RESUMED UPON ADMISSION. SHE IS ALSO ON SLIDING SCALE COVERAGE. ADMISSION ABG: PH 7.48, PC02 32, HCO3 23, 02 SAT 95, BASE EXCESS 0.9, FIO2 21. WE OBTAINED BLOOD/SPUTUM CULTURES, PENDING AT THIS TIME. PATIENT HAD NO OVERNIGHT EVENTS. SHE COMPLAINS OF CONTINUED COUGH, WEAKNESS. AM LABS: HGB 12.4, WBC 10.0, BUN 30/CREATININE 0.94, GLUCOSE 218. MORNING VITALS: 159/70-50-18-98.6-94% ROOM AIR. Past Medical Family Social History Allergies: Allergies IVP DYE Allergy (Uncoded 07/01/21 10:32) Vital Signs and I&O's Vital Signs: Vital Signs Temperature 97.8 F Temperature 98.6 F Pulse Rate [Left Brachial] 52 Pulse Rate [Left Brachial] 50 Respiratory Rate 18 Respiratory Rate 18 Blood Pressure [Right Arm] 155/70 Blood Pressure [Right Arm] 159/70 O2 Sat by Pulse Oximetry 96 O2 Sat by Pulse Oximetry 94 Intake and Output: Intake & Output 01/22/24 01/23/24 01/24/24 01/25/24 11:59 11:59 11:59 11:59 Intake Total 1351 / 1351 Balance 1351 / 1351 Physical Exam Oriented: Normal Eyes: Normal Ear: Normal Nose: Discharge Throat: Exudate Respiratory: Diminished Cardiovascular: Irregular Auscultation: Bowel Sounds: Normal Tenderness: Normal Skin: Decreased Turgur Musculoskeletal: Back:Lumbar Mood Description: Anxious Affect: Anxious Speech Pattern: Clear and Appropriate Laboratory and Diagnostics 01/25/24 05:38 01/25/24 05:38 Labs: Laboratory WBC 10.0 X10^3/uL (3.6-10.0) 01/25/24 05:38 RBC 4.34 X10^6/uL (3.5-5.4) 01/25/24 05:38 Hgb 12.4 g/dL (12.0-16.0) 01/25/24 05:38 Hct 36.6 % (36.0-47.0) 01/25/24 05:38 MCV 84.3 fL (80.0-100.0) 01/25/24 05:38 MCH 28.5 pg (27.0-34.0) 01/25/24 05:38 MCHC 33.9 g/dL (33.0-35.0) 01/25/24 05:38 RDW 13.6 % (11.6-16.5) 01/25/24 05:38 Plt Count 263 X10^3/uL (150.0-450.0) 01/25/24 05:38 MPV 8.5 fL (7.4-11.0) 01/25/24 05:38 Neut % (Auto) 82.6 % (42.0-75.0) H 01/25/24 05:38 Lymph % (Auto) 14.7 % (21.0-51.0) L 01/25/24 05:38 [place] % (Auto) 1.9 % (0.0-13.0) 01/25/24 05:38 Eos % (Auto) 0.0 % (0.9-2.9) L 01/25/24 05:38 Baso % (Auto) 0.8 % (0.2-1.0) 01/25/24 05:38 Neut # (Auto) 8.3 x10^3/uL (2.2-4.8) H 01/25/24 05:38 Lymph # (Auto) 1.5 X10^3/uL (1.3-2.9) 01/25/24 05:38 [place] # (Auto) 0.2 x10^3/uL (0.3-0.8) L 01/25/24 05:38 Eos # (Auto) 0.0 x10^3/uL (0.0-0.2) 01/25/24 05:38 Baso # (Auto) 0.1 X10^3/uL (0.0-0.1) 01/25/24 05:38 Absolute Nucleated RBC 0.0 /100WBC 01/25/24 05:38 D-Dimer 0.62 ug/ml (0.0-0.57) H 01/24/24 17:44 Sample Site Lrad 01/24/24 16:17 ABG pH 7.480 (7.35-7.45) H 01/24/24 16:17 ABG pCO2 32.0 mmHg (35.0-45.0) L 01/24/24 16:17 ABG pO2 98.0 mmHg (80.0-100.0) 01/24/24 16:17 ABG HCO3 23.8 mmol/L (22-26) 01/24/24 16:17 ABG O2 Saturation 98.0 % (90-100) 01/24/24 16:17 ABG Base Excess 0.9 mmol/L (-2.0-2.0) 01/24/24 16:17 Henrry Test Pos 01/24/24 16:17 A-a Gradient 12.0 mmHg 01/24/24 16:17 FiO2 21.0 01/24/24 16:17 Blood Gas Comments Pt zack well. kg 01/24/24 16:17 Sodium 138 mmol/L (136-145) 01/25/24 05:38 Corrected Sodium 141 mmol/L (136-145) 01/25/24 05:38 Potassium 4.3 mmol/L (3.5-5.1) 01/25/24 05:38 Chloride 104 mmol/L (98-107) 01/25/24 05:38 Carbon Dioxide 23.7 mmol/L (21-32) 01/25/24 05:38 BUN 30 mg/dL (7-18) H 01/25/24 05:38 Creatinine 0.94 mg/dL (0.55-1.02) 01/25/24 05:38 Est GFR (MDRD) Af Amer > 60 (>60) 01/25/24 05:38 Est GFR (MDRD) Non-Af > 60 (>60) 01/25/24 05:38 Glucose 218 mg/dL (65-99) H 01/25/24 05:38 POC Glucose (mg/dL) 197 mg/dL (65-99) H 01/25/24 05:03 Calcium 8.8 mg/dL (8.5-10.1) 01/25/24 05:38 Corrected Calcium 9.7 mg/dL (8.5-10.1) 01/25/24 05:38 Magnesium 2.0 mg/dL (2.0-2.9) 01/24/24 17:44 Total Bilirubin 0.30 mg/dL (0.2-1.0) 01/25/24 05:38 AST 13 Units/L (15-37) L 01/25/24 05:38 ALT 13 Units/L (12-78) 01/25/24 05:38 Alkaline Phosphatase 51 Units/L (46-116) 01/25/24 05:38 Total Protein 6.6 g/dL (6.4-8.2) 01/25/24 05:38 Albumin 2.9 g/dL (3.4-5.0) L 01/25/24 05:38 Globulin 3.7 g/dL (2.5-4.5) 01/25/24 05:38 Albumin/Globulin Ratio 0.8 Ratio (1.1-2.1) L 01/25/24 05:38 Free T4 0.86 ng/dL (0.76-1.46) 01/25/24 05:38 TSH 3rd Generation 0.818 uIU/mL (0.358-3.74) 01/25/24 05:38 Specimen Type Clean catch urine 01/24/24 19:52 Urine Color Pale yellow (YELLOW) 01/24/24 19:52 Urine Appearance Clear (CLEAR) 01/24/24 19:52 Urine pH 6.0 (5.0 - 8.0) 01/24/24 19:52 Ur Specific [place] 1.020 (1.000-1.030) 01/24/24 19:52 Urine Protein 3+ (NEGATIVE) 01/24/24 19:52 Urine Glucose (UA) 4+ (NEGATIVE) 01/24/24 19:52 Urine Ketones Negative (NEGATIVE) 01/24/24 19:52 Urine Blood 1+ (NEGATIVE) 01/24/24 19:52 Urine Nitrite Negative (NEGATIVE) 01/24/24 19:52 Urine Bilirubin Negative (NEGATIVE) 01/24/24 19:52 Urine Urobilinogen Normal (NORMAL) 01/24/24 19:52 Ur Leukocyte Esterase Negative (NEGATIVE) 01/24/24 19:52 Urine RBC 0-2 /HPF (0-3) 01/24/24 19:52 Urine WBC None seen /HPF (0-5) 01/24/24 19:52 Ur Squamous Epith Cells Rare /HPF (NEGATIVE) 01/24/24 19:52 Amorphous Sediment Trace /HPF (NEGATIVE) 01/24/24 19:52 Urine Bacteria Trace /HPF (NEGATIVE) 01/24/24 19:52 Ur Culture Indicated? No/not indicated 01/24/24 19:52 SARS-CoV-2 (PCR) Negative (NEGATIVE) 01/24/24 17:35 Influenza Type A (PCR) Negative (NEGATIVE) 01/24/24 17:35 Influenza Type B (PCR) Negative (NEGATIVE) 01/24/24 17:35 RSV (PCR) Negative (NEGATIVE) 01/24/24 17:35 Plan (1) Acute bronchitis: Status: Acute Plan: ADD TUSSIONEX, DUONEBS, DECREASE NS TO 50CC/HOUR, OBTAIN TSH/FREE T4 LEVEL. CONTINUE IV ABX, IV SOLUMEDROL, BP/BS CONTROL, HOME MEDICATIONS, RESPIRATORY THERAPY, SUPPLMENTAL 02 PRN. PLAN FOR REPEAT AM LABS AND CHEST XRAY. (2) RLS (restless legs syndrome): Status: Chronic (3) CAD (coronary artery disease): Status: Chronic (4) Hypertension: Status: Chronic Qualifiers: Hypertension type: essential hypertension Qualified Code(s): I10 - Essential (primary) hypertension (5) Diabetes mellitus, type 2: Status: Chronic
[2024-01-25] MEDS: BENADRYL CAP/TAB 25 MG PO SCH (20:51)
[2024-01-26 05:14] LABS: BASOPHILS % (AUTO) 0.4 % (0.2-1.0); HEMATOCRIT 35.5 % (36.0-47.0); HEMOGLOBIN 12.2 g/dL (12.0-16.0); LYMPHOCYTES # (AUTO) 0.8 X10^3/uL (1.3-2.9); LYMPHOCYTES % (AUTO) 7.5 % (21.0-51.0); MEAN CORPUSCULAR HEMOGLOBIN 28.8 pg (27.0-34.0); MEAN CORPUSCULAR HGB CONC 34.4 g/dL (33.0-35.0); MEAN CORPUSCULAR VOLUME 83.6 fL (80.0-100.0); MEAN PLATELET VOLUME 8.7 fL (7.4-11.0); MONOCYTES # (AUTO) 0.4 x10^3/uL (0.3-0.8); MONOCYTES % (AUTO) 3.9 % (0.0-13.0); NEUTROPHILS # (AUTO) 9.6 x10^3/uL (2.2-4.8); NEUTROPHILS % (AUTO) 88.2 % (42.0-75.0); PLATELET COUNT 266 X10^3/uL (150.0-450.0); RED BLOOD COUNT 4.24 X10^6/uL (3.5-5.4); RED CELL DISTRIBUTION WIDTH 13.2 % (11.6-16.5); WHITE BLOOD COUNT 10.9 X10^3/uL (3.6-10.0)
[2024-01-26 05:21] LABS: ALANINE AMINOTRANSFERASE 11 Units/L (12-78); ALBUMIN 2.6 g/dL (3.4-5.0); ALKALINE PHOSPHATASE 59 Units/L (46-116); ASPARTATE AMINO TRANSFERASE 8 Units/L (15-37); BLOOD UREA NITROGEN 26 mg/dL (7-18); CALCIUM 8.4 mg/dL (8.5-10.1); CHLORIDE 104 mmol/L (98-107); COR CA(FOR HYPOALB) 9.5 mg/dL (8.5-10.1); COR NA(FOR HYPERGLY) 141 mmol/L (136-145); CREATININE 0.96 mg/dL (0.55-1.02); GLUCOSE 282 mg/dL (65-99); POTASSIUM 4.2 mmol/L (3.5-5.1); SODIUM 137 mmol/L (136-145); TOTAL PROTEIN 6.2 g/dL (6.4-8.2); eGFR NON BLACK RACES > 60 (>60)
--- NOTE | 2024-01-26 05:45 | RAD ---
EXAM: CHEST, PA/LAT ADULT HISTORY: BRONCHITIS; DM, COPD, UT, HTN, ASTHMA, GERD, RENAL DISEASE SX: ANGIO/STENTS, BOWEL RESECTION, HYST COMPARISON: 01/24/2024 FINDINGS: The trachea is midline. The cardiac silhouette is mildly enlarged.. The lungs are clear without foc al infiltrate or effusion. The bony thorax is unremarkable. IMPRESSION: Mild cardiomegaly No active cardiopulmonary disease THIS IS AN ELECTRONICALLY VERIFIED FINAL REPORT 01/26/2024 5:42 AM - Electronically signed by Kristian Campa MD
[2024-01-26] MEDS ORDERED: TOPROL XL PO ONE (08:15)
[2024-01-26] MEDS ORDERED: ZITHROMAX INJ 500 MG VIAL IV ONE (08:16)
[2024-01-26] MEDS: SOLU-Medrol 40 MG VIAL IVP SCH (09:41)
--- NOTE | 2024-01-26 13:55 | PCM.PROG ---
Progress Note Progress Note for Day of Date of Exam: 01/26/24 Subjective Subjective: PT IS 68 WF, DIRECT ADMIT WEDNESDAY AFTERNOON FOR TREATMENT OF ACUTE BRONCHITIS AFTER FAILING OUTPATIENT TREATMENT. UPON ADMISSION, PT WAS STARTED ON IV HYDRATION, IV ABX, AND IV SOLUMEDROL. WE OBTAINED A RESPIRATORY SWAB THAT WAS NEGATIVE FOR FLU/COVID/RSV AND A CHEST XRAY THAT SHOWED MILD CARDIOMEGALY, BUT OTHERWISE WITHOUT ACUTE CARDIOPULMONARY DISEASE. AM LABS: WBC 10.9BUN 26/CREATININE 0.96, PATIENT IS A KNOWN DIABETIC AND HOME MEDICATIONS WERE RESUMED UPON ADMISSION. SHE IS ALSO ON SLIDING SCALE COVERAGE. ADMISSION ABG: PH 7.48, PC02 32, HCO3 23, 02 SAT 95, BASE EXCESS 0.9, FIO2 21. WE OBTAINED BLOOD/SPUTUM CULTURES, PENDING AT THIS TIME. PATIENT HAD NO OVERNIGHT EVENTS. SHE COMPLAINS OF CONTINUED COUGH, WEAKNESS. MORNING VITALS: 159/81, 94% ROOM AIR. Past Medical Family Social History Allergies: Allergies IVP DYE Allergy (Uncoded 07/01/21 10:32) Vital Signs and I&O's Vital Signs: Vital Signs Temperature 97.5 F Temperature 97.9 F Pulse Rate [Left Brachial] 70 Pulse Rate [Left Brachial] 75 Respiratory Rate 18 Respiratory Rate 20 Blood Pressure [Right Arm] 159/81 Blood Pressure [Right Arm] 126/82 O2 Sat by Pulse Oximetry 96 O2 Sat by Pulse Oximetry 96 Intake and Output: Intake & Output 01/24/24 01/25/24 01/26/24 01/27/24 11:59 11:59 11:59 11:59 Intake Total 1351 / 1351 2541 / 2541 Balance 1351 / 1351 2541 / 2541 Physical Exam Oriented: Normal Eyes: Normal Ear: Normal Nose: Discharge Throat: Exudate Respiratory: Wheezes Cardiovascular: Irregular Auscultation: Bowel Sounds: Normal Tenderness: Normal Skin: Decreased Turgur Musculoskeletal: Back:Lumbar Mood Description: Anxious Affect: Anxious Speech Pattern: Clear and Appropriate Laboratory and Diagnostics 01/26/24 04:35 01/26/24 04:35 Labs: 01/24/24 17:50 Blood Blood Culture - Preliminary 01/24/24 17:44 Blood Blood Culture - Preliminary 01/25/24 23:30 Sputum - Expectorated Sputum - Final Laboratory WBC 10.9 X10^3/uL (3.6-10.0) H 01/26/24 04:35 RBC 4.24 X10^6/uL (3.5-5.4) 01/26/24 04:35 Hgb 12.2 g/dL (12.0-16.0) 01/26/24 04:35 Hct 35.5 % (36.0-47.0) L 01/26/24 04:35 MCV 83.6 fL (80.0-100.0) 01/26/24 04:35 MCH 28.8 pg (27.0-34.0) 01/26/24 04:35 MCHC 34.4 g/dL (33.0-35.0) 01/26/24 04:35 RDW 13.2 % (11.6-16.5) 01/26/24 04:35 Plt Count 266 X10^3/uL (150.0-450.0) 01/26/24 04:35 MPV 8.7 fL (7.4-11.0) 01/26/24 04:35 Neut % (Auto) 88.2 % (42.0-75.0) H 01/26/24 04:35 Lymph % (Auto) 7.5 % (21.0-51.0) L 01/26/24 04:35 [place] % (Auto) 3.9 % (0.0-13.0) 01/26/24 04:35 Eos % (Auto) 0.0 % (0.9-2.9) L 01/26/24 04:35 Baso % (Auto) 0.4 % (0.2-1.0) 01/26/24 04:35 Neut # (Auto) 9.6 x10^3/uL (2.2-4.8) H 01/26/24 04:35 Lymph # (Auto) 0.8 X10^3/uL (1.3-2.9) L 01/26/24 04:35 [place] # (Auto) 0.4 x10^3/uL (0.3-0.8) 01/26/24 04:35 Eos # (Auto) 0.0 x10^3/uL (0.0-0.2) 01/26/24 04:35 Baso # (Auto) 0.0 X10^3/uL (0.0-0.1) 01/26/24 04:35 Absolute Nucleated RBC 0.0 /100WBC 01/26/24 04:35 D-Dimer 0.62 ug/ml (0.0-0.57) H 01/24/24 17:44 Sample Site Lrad 01/24/24 16:17 ABG pH 7.480 (7.35-7.45) H 01/24/24 16:17 ABG pCO2 32.0 mmHg (35.0-45.0) L 01/24/24 16:17 ABG pO2 98.0 mmHg (80.0-100.0) 01/24/24 16:17 ABG HCO3 23.8 mmol/L (22-26) 01/24/24 16:17 ABG O2 Saturation 98.0 % (90-100) 01/24/24 16:17 ABG Base Excess 0.9 mmol/L (-2.0-2.0) 01/24/24 16:17 Henrry Test Pos 01/24/24 16:17 A-a Gradient 12.0 mmHg 01/24/24 16:17 FiO2 21.0 01/24/24 16:17 Blood Gas Comments Pt zack well. kg 01/24/24 16:17 Sodium 137 mmol/L (136-145) 01/26/24 04:35 Corrected Sodium 141 mmol/L (136-145) 01/26/24 04:35 Potassium 4.2 mmol/L (3.5-5.1) 01/26/24 04:35 Chloride 104 mmol/L (98-107) 01/26/24 04:35 Carbon Dioxide 24.0 mmol/L (21-32) 01/26/24 04:35 BUN 26 mg/dL (7-18) H 01/26/24 04:35 Creatinine 0.96 mg/dL (0.55-1.02) 01/26/24 04:35 Est GFR (MDRD) Af Amer > 60 (>60) 01/26/24 04:35 Est GFR (MDRD) Non-Af > 60 (>60) 01/26/24 04:35 Glucose 282 mg/dL (65-99) H 01/26/24 04:35 POC Glucose (mg/dL) 390 mg/dL (65-99) H 01/26/24 11:12 Calcium 8.4 mg/dL (8.5-10.1) L 01/26/24 04:35 Corrected Calcium 9.5 mg/dL (8.5-10.1) 01/26/24 04:35 Magnesium 2.0 mg/dL (2.0-2.9) 01/24/24 17:44 Total Bilirubin 0.30 mg/dL (0.2-1.0) 01/26/24 04:35 AST 8 Units/L (15-37) L 01/26/24 04:35 ALT 11 Units/L (12-78) L 01/26/24 04:35 Alkaline Phosphatase 59 Units/L (46-116) 01/26/24 04:35 Total Protein 6.2 g/dL (6.4-8.2) L 01/26/24 04:35 Albumin 2.6 g/dL (3.4-5.0) L 01/26/24 04:35 Globulin 3.6 g/dL (2.5-4.5) 01/26/24 04:35 Albumin/Globulin Ratio 0.7 Ratio (1.1-2.1) L 01/26/24 04:35 Free T4 0.86 ng/dL (0.76-1.46) 01/25/24 05:38 TSH 3rd Generation 0.818 uIU/mL (0.358-3.74) 01/25/24 05:38 Specimen Type Clean catch urine 01/24/24 19:52 Urine Color Pale yellow (YELLOW) 01/24/24 19:52 Urine Appearance Clear (CLEAR) 01/24/24 19:52 Urine pH 6.0 (5.0 - 8.0) 01/24/24 19:52 Ur Specific [place] 1.020 (1.000-1.030) 01/24/24 19:52 Urine Protein 3+ (NEGATIVE) 01/24/24 19:52 Urine Glucose (UA) 4+ (NEGATIVE) 01/24/24 19:52 Urine Ketones Negative (NEGATIVE) 01/24/24 19:52 Urine Blood 1+ (NEGATIVE) 01/24/24 19:52 Urine Nitrite Negative (NEGATIVE) 01/24/24 19:52 Urine Bilirubin Negative (NEGATIVE) 01/24/24 19:52 Urine Urobilinogen Normal (NORMAL) 01/24/24 19:52 Ur Leukocyte Esterase Negative (NEGATIVE) 01/24/24 19:52 Urine RBC 0-2 /HPF (0-3) 01/24/24 19:52 Urine WBC None seen /HPF (0-5) 01/24/24 19:52 Ur Squamous Epith Cells Rare /HPF (NEGATIVE) 01/24/24 19:52 Amorphous Sediment Trace /HPF (NEGATIVE) 01/24/24 19:52 Urine Bacteria Trace /HPF (NEGATIVE) 01/24/24 19:52 Ur Culture Indicated? No/not indicated 01/24/24 19:52 SARS-CoV-2 (PCR) Negative (NEGATIVE) 01/24/24 17:35 Influenza Type A (PCR) Negative (NEGATIVE) 01/24/24 17:35 Influenza Type B (PCR) Negative (NEGATIVE) 01/24/24 17:35 RSV (PCR) Negative (NEGATIVE) 01/24/24 17:35 Resp Viral Panel (PCR) See scanned report 01/25/24 10:09 Plan (1) Acute bronchitis: Status: Acute Plan: ADD TUSSIONEX, DUONEBS, DECREASE NS TO 50CC/HOUR, OBTAIN TSH/FREE T4 LEVEL. CONTINUE IV ABX, IV SOLUMEDROL DECREASED TO 40MG BID, BP/BS CONTROL, HOME MEDICATIONS, RESPIRATORY THERAPY, SUPPLMENTAL 02 PRN. PLAN FOR REPEAT AM LABS AND CHEST XRAY. ECHO ORDERED FOR TODAY (2) RLS (restless legs syndrome): Status: Chronic (3) CAD (coronary artery disease): Status: Chronic (4) Hypertension: Status: Chronic Qualifiers: Hypertension type: essential hypertension Qualified Code(s): I10 - Essential (primary) hypertension (5) Diabetes mellitus, type 2: Status: Chronic
[2024-01-26] MEDS: TOPROL XL PO ONE (21:59)
[2024-01-27 07:14] LABS: BASOPHILS # (AUTO) 0.1 X10^3/uL (0.0-0.1); BASOPHILS % (AUTO) 0.9 % (0.2-1.0); HEMATOCRIT 35.9 % (36.0-47.0); HEMOGLOBIN 12.1 g/dL (12.0-16.0); LYMPHOCYTES # (AUTO) 1.6 X10^3/uL (1.3-2.9); LYMPHOCYTES % (AUTO) 10.7 % (21.0-51.0); MEAN CORPUSCULAR HEMOGLOBIN 28.6 pg (27.0-34.0); MEAN CORPUSCULAR HGB CONC 33.7 g/dL (33.0-35.0); MEAN CORPUSCULAR VOLUME 84.8 fL (80.0-100.0); MONOCYTES # (AUTO) 0.6 x10^3/uL (0.3-0.8); MONOCYTES % (AUTO) 4.2 % (0.0-13.0); NEUTROPHILS # (AUTO) 12.3 x10^3/uL (2.2-4.8); NEUTROPHILS % (AUTO) 84.2 % (42.0-75.0); PLATELET COUNT 267 X10^3/uL (150.0-450.0); RED BLOOD COUNT 4.24 X10^6/uL (3.5-5.4); RED CELL DISTRIBUTION WIDTH 13.3 % (11.6-16.5); WHITE BLOOD COUNT 14.6 X10^3/uL (3.6-10.0)
[2024-01-27 07:23] LABS: ALANINE AMINOTRANSFERASE 10 Units/L (12-78); ALBUMIN 2.7 g/dL (3.4-5.0); ALKALINE PHOSPHATASE 74 Units/L (46-116); ASPARTATE AMINO TRANSFERASE 9 Units/L (15-37); BLOOD UREA NITROGEN 25 mg/dL (7-18); CALCIUM 8.6 mg/dL (8.5-10.1); CARBON DIOXIDE 25.5 mmol/L (21-32); CHLORIDE 105 mmol/L (98-107); COR CA(FOR HYPOALB) 9.6 mg/dL (8.5-10.1); COR NA(FOR HYPERGLY) 145 mmol/L (136-145); GLUCOSE 302 mg/dL (65-99); POTASSIUM 4.3 mmol/L (3.5-5.1); SODIUM 140 mmol/L (136-145); TOTAL PROTEIN 6.1 g/dL (6.4-8.2); eGFR NON BLACK RACES > 60 (>60)
[2024-01-27 07:32] LABS: PLATELET MORPHOLOGY COMMENT NORMAL (NORMAL)
[2024-01-27] MEDS ORDERED: TOPROL XL PO ONE (08:10)
[2024-01-27 08:20] VITALS: RESP 18
[2024-01-27] MEDS: LASIX IVP SCH (09:13)
[2024-01-27] MEDS: K-DUR TAB 20 MEQ PO SCH (09:13)
[2024-01-27] MEDS: LOVENOX INJ 40 MG SYR SC SCH (09:14)
[2024-01-27 12:19] VITALS: BP 153/71; PULSE 61; TEMP 97.1; O2SAT 94
[2024-01-27] MEDS ORDERED: NovoLIN R (or HumuLIN R) SUBCUT PRN (12:42)
[2024-01-27] MEDS: NovoLIN R (or HumuLIN R) SUBCUT PRN (13:02)
--- NOTE | 2024-01-27 15:07 | RAD ---
EXAM: CHEST, PA/LAT ADULT HISTORY: SOB, BRONCHITITS; COMPARISON: Prior study or studies were utilized for comparison during interpretation with the most relevant irineo ed 01/26/2024 TECHNIQUE: CHEST, PA/LAT ADULT FINDINGS: Chest: Lines and tubes: Cardiac leads overlie the chest. Mediastinum: Cardiac and mediastinal shadow is within normal limits for size and contour. Pulmonary vessels: No pulmonary vascular congestion. Lung sterling: No suspicious airspace opacity. Pleura: No effusion. No pneumothorax. Bones and soft tissues: No acute osseous or soft tissue abnormality. IMPRESSION: 1. No acute cardiopulmonary abnormality THIS IS AN ELECTRONICALLY VERIFIED FINAL REPORT 01/27/2024 2:55 PM - Electronically signed by Rj Ortiz MD
--- NOTE | 2024-01-27 18:08 | PCM.DCPLAN ---
DISCHARGE SUMMARY Admission Date Date of Admission: 01/24/24 Discharge Date Discharge Date: 01/27/24 Admission Diagnoses (1) Acute bronchitis: Status: Acute (2) RLS (restless legs syndrome): Status: Chronic (3) CAD (coronary artery disease): Status: Chronic (4) Hypertension: Status: Chronic (5) Diabetes mellitus, type 2: Status: Chronic Discharge Diagnoses Discharge Diagnosis: SAME ADMISSION Discharge Medications Discharge Medications: Home Medication List dexamethasone 4 mg tablet 4 mg PO QDAY 01/24/24 [History] metformin 500 mg tablet,extended release 24 hr 500 mg PO BID 01/24/24 [History] spironolactone 25 mg tablet 25 mg PO BID 01/24/24 [History] azithromycin 250 mg tablet 250 mg PO QDAY #7 tabs 01/27/24 [Rx] budesonide 0.5 mg/2 mL suspension for nebulization 0.5 mg (2 mL) inhalation BID #30 neb 01/27/24 [Rx] fluconazole 100 mg tablet (Diflucan) 100 mg PO QDAY 3 days #3 tabs 01/27/24 [Rx] metoprolol succinate 100 mg tablet,extended release 24 hr 50 mg PO BID #14 tabs 01/27/24 [Rx] Prescriptions: azithromycin MILAGRO,AYLIN budesonide MILAGRO,AYLIN fluconazole [Diflucan] MILAGRO,AYLIN metoprolol succinate MILAGRO,AYLIN Hospital Course Vital Signs: Vital Signs Temperature 97.1 F Pulse Rate [Left Brachial] 61 Respiratory Rate 18 Blood Pressure [Right Arm] 153/71 O2 Sat by Pulse Oximetry 94 Latest Lab Results: Laboratory Last Values WBC 14.6 X10^3/uL (3.6-10.0) H 01/27/24 06:30 RBC 4.24 X10^6/uL (3.5-5.4) 01/27/24 06:30 Hgb 12.1 g/dL (12.0-16.0) 01/27/24 06:30 Hct 35.9 % (36.0-47.0) L 01/27/24 06:30 MCV 84.8 fL (80.0-100.0) 01/27/24 06:30 MCH 28.6 pg (27.0-34.0) 01/27/24 06:30 MCHC 33.7 g/dL (33.0-35.0) 01/27/24 06:30 RDW 13.3 % (11.6-16.5) 01/27/24 06:30 Plt Count 267 X10^3/uL (150.0-450.0) 01/27/24 06:30 Plt Count Comment Adequate (ADEQUATE) 01/27/24 06:30 MPV 9.0 fL (7.4-11.0) 01/27/24 06:30 Neut % (Auto) 84.2 % (42.0-75.0) H 01/27/24 06:30 Lymph % (Auto) 10.7 % (21.0-51.0) L 01/27/24 06:30 [place] % (Auto) 4.2 % (0.0-13.0) 01/27/24 06:30 Eos % (Auto) 0.0 % (0.9-2.9) L 01/27/24 06:30 Baso % (Auto) 0.9 % (0.2-1.0) 01/27/24 06:30 Neut # (Auto) 12.3 x10^3/uL (2.2-4.8) H 01/27/24 06:30 Lymph # (Auto) 1.6 X10^3/uL (1.3-2.9) 01/27/24 06:30 [place] # (Auto) 0.6 x10^3/uL (0.3-0.8) 01/27/24 06:30 Eos # (Auto) 0.0 x10^3/uL (0.0-0.2) 01/27/24 06:30 Baso # (Auto) 0.1 X10^3/uL (0.0-0.1) 01/27/24 06:30 Absolute Nucleated RBC 0.0 /100WBC 01/27/24 06:30 Total Counted 100 01/27/24 06:30 Neutrophils % (Manual) 81 % (39-76) H 01/27/24 06:30 Lymphocytes % (Manual) 16 % (13-43) 01/27/24 06:30 Monocytes % (Manual) 3 % (4-9) L 01/27/24 06:30 Plt Morphology Comment Normal (NORMAL) 01/27/24 06:30 RBC Morphology Normal (NORMAL) 01/27/24 06:30 D-Dimer 0.62 ug/ml (0.0-0.57) H 01/24/24 17:44 Sample Site Lrad 01/24/24 16:17 ABG pH 7.480 (7.35-7.45) H 01/24/24 16:17 ABG pCO2 32.0 mmHg (35.0-45.0) L 01/24/24 16:17 ABG pO2 98.0 mmHg (80.0-100.0) 01/24/24 16:17 ABG HCO3 23.8 mmol/L (22-26) 01/24/24 16:17 ABG O2 Saturation 98.0 % (90-100) 01/24/24 16:17 ABG Base Excess 0.9 mmol/L (-2.0-2.0) 01/24/24 16:17 Henrry Test Pos 01/24/24 16:17 A-a Gradient 12.0 mmHg 01/24/24 16:17 FiO2 21.0 01/24/24 16:17 Blood Gas Comments Pt zack well. kg 01/24/24 16:17 Sodium 140 mmol/L (136-145) 01/27/24 06:30 Corrected Sodium 145 mmol/L (136-145) 01/27/24 06:30 Potassium 4.3 mmol/L (3.5-5.1) 01/27/24 06:30 Chloride 105 mmol/L (98-107) 01/27/24 06:30 Carbon Dioxide 25.5 mmol/L (21-32) 01/27/24 06:30 BUN 25 mg/dL (7-18) H 01/27/24 06:30 Creatinine 0.90 mg/dL (0.55-1.02) 01/27/24 06:30 Est GFR (MDRD) Af Amer > 60 (>60) 01/27/24 06:30 Est GFR (MDRD) Non-Af > 60 (>60) 01/27/24 06:30 Glucose 451 mg/dL (65-99) H 01/27/24 12:20 POC Glucose (mg/dL) 445 mg/dL (65-99) H 01/27/24 13:40 Calcium 8.6 mg/dL (8.5-10.1) 01/27/24 06:30 Corrected Calcium 9.6 mg/dL (8.5-10.1) 01/27/24 06:30 Magnesium 2.0 mg/dL (2.0-2.9) 01/24/24 17:44 Total Bilirubin 0.40 mg/dL (0.2-1.0) 01/27/24 06:30 AST 9 Units/L (15-37) L 01/27/24 06:30 ALT 10 Units/L (12-78) L 01/27/24 06:30 Alkaline Phosphatase 74 Units/L (46-116) 01/27/24 06:30 Total Protein 6.1 g/dL (6.4-8.2) L 01/27/24 06:30 Albumin 2.7 g/dL (3.4-5.0) L 01/27/24 06:30 Globulin 3.4 g/dL (2.5-4.5) 01/27/24 06:30 Albumin/Globulin Ratio 0.8 Ratio (1.1-2.1) L 01/27/24 06:30 Free T4 0.86 ng/dL (0.76-1.46) 01/25/24 05:38 TSH 3rd Generation 0.818 uIU/mL (0.358-3.74) 01/25/24 05:38 Specimen Type Clean catch urine 01/24/24 19:52 Urine Color Pale yellow (YELLOW) 01/24/24 19:52 Urine Appearance Clear (CLEAR) 01/24/24 19:52 Urine pH 6.0 (5.0 - 8.0) 01/24/24 19:52 Ur Specific [place] 1.020 (1.000-1.030) 01/24/24 19:52 Urine Protein 3+ (NEGATIVE) 01/24/24 19:52 Urine Glucose (UA) 4+ (NEGATIVE) 01/24/24 19:52 Urine Ketones Negative (NEGATIVE) 01/24/24 19:52 Urine Blood 1+ (NEGATIVE) 01/24/24 19:52 Urine Nitrite Negative (NEGATIVE) 01/24/24 19:52 Urine Bilirubin Negative (NEGATIVE) 01/24/24 19:52 Urine Urobilinogen Normal (NORMAL) 01/24/24 19:52 Ur Leukocyte Esterase Negative (NEGATIVE) 01/24/24 19:52 Urine RBC 0-2 /HPF (0-3) 01/24/24 19:52 Urine WBC None seen /HPF (0-5) 01/24/24 19:52 Ur Squamous Epith Cells Rare /HPF (NEGATIVE) 01/24/24 19:52 Amorphous Sediment Trace /HPF (NEGATIVE) 01/24/24 19:52 Urine Bacteria Trace /HPF (NEGATIVE) 01/24/24 19:52 Ur Culture Indicated? No/not indicated 01/24/24 19:52 SARS-CoV-2 (PCR) Negative (NEGATIVE) 01/24/24 17:35 Influenza Type A (PCR) Negative (NEGATIVE) 01/24/24 17:35 Influenza Type B (PCR) Negative (NEGATIVE) 01/24/24 17:35 RSV (PCR) Negative (NEGATIVE) 01/24/24 17:35 Resp Viral Panel (PCR) See scanned report 01/25/24 10:09 Hospital Course: PT IS 68 WF, DIRECT ADMIT WEDNESDAY AFTERNOON FOR TREATMENT OF ACUTE BRONCHITIS AFTER FAILING OUTPATIENT TREATMENT. UPON ADMISSION, PT WAS STARTED ON IV HYDRATION, IV ABX, AND IV SOLUMEDROL. WE OBTAINED A RESPIRATORY SWAB THAT WAS NEGATIVE FOR FLU/COVID/RSV AND A CHEST XRAY THAT SHOWED MILD CARDIOMEGALY, BUT OTHERWISE WITHOUT ACUTE CARDIOPULMONARY DISEASE. PATIENT IS A KNOWN DIABETIC AND HOME MEDICATIONS WERE RESUMED UPON ADMISSION. SHE IS ALSO ON SLIDING SCALE COVERAGE. ADMISSION ABG: PH 7.48, PC02 32, HCO3 23, 02 SAT 95, BASE EXCESS 0.9, FIO2 21. WE OBTAINED BLOOD/SPUTUM CULTURES, WHICH WERE NEGATIVE. HER AIT RESPIRATORY PANEL WAS POSITIVE FOR CORONAVIRUS (229E, NL63, OC43, AND HKU1). HER REPEAT CHEST XRAY ON 01/26/24 CONTINUED TO SHOW CARDIOMEGALY WITHOUT ACUTE CARDIOPULMONARY DISEASE. WE OBTAINED AN ECHOCARDIOGRAM THAT SHOWED AN EF OF GREATER THAN 70%;HGB 12.1, WBC 14.6, BUN 25/CREATININE 0.90. MORNING VITALS: 165/[id number]%. PATIENT STATES THAT SHE IS FEELING MUCH BETTER, SO WE WILL ALLOW HER TO DISCHARGE HOME ON PO ABX, BUDESONIDE NEBULIZER TREATMENTS, AND DIFLUCAN. SHE WILL NEED TO FOLLOW UP WITH HER PRIMARY CARE PROVIDER. SHE HAS AN APPOINTMENT SCHEDULED FOR 02/11/24 AT 11:30AM. SHE WAS ALSO RECOMMENDED FOR A CARDIOLOGY WORKUP. SHE HAS BEEN SCHEDULED FOR AN APPOINTMENT WITH [employer], DR. ODONNELL ON 03/23/24 AT 3:15PM. PLEASE SEE DISCHARGE PLAN FOR LIST OF DISCHARGE MEDICATIONS AND MODIFICATIONS THAT WE MADE, ELECTRONIC MEDICAL RECORD FOR DIAGNOSTIC TESTS AND LABS. THE PATIENT WAS INSTRUCTED TO RETURN TO THE ER IF CONDITION CHANGED OR WORSENED UNEXPECTEDLY.
[2024-01-27] MEDS ORDERED: SNACK - Diabetic Appropriate PO SCH (20:00)
== END 2024-01-27 14:00 | disposition home or self-care (01) | DRG 203 ==
LOC: MED/SURG 14:56
PROVIDERS: ADMIT Internal Medicine; ATTEND Internal Medicine
DX: I11.9 Hypertensive heart disease without heart failure; E11.65 Type 2 diabetes mellitus with hyperglycemia; Z20.822 Contact with and (suspected) exposure to COVID-19; J20.8 Acute bronchitis due to other specified organisms; R53.1 Weakness; G25.81 Restless legs syndrome; R79.1 Abnormal coagulation profile; I34.0 Nonrheumatic mitral (valve) insufficiency; I25.10 Atherosclerotic heart disease of native coronary artery without angina pectoris; Z59.86 Financial insecurity; R06.02 Shortness of breath